=== PATIENT | female | born 1980 | race Caucasian/White ===

== ENCOUNTER → 2021-12-12 | Outpatient (CLI) | payer BC ==
[2021-12-14 19:06] LABS: HPV 16 Negative (Negative); HPV 18 Negative (Negative); HPV OTHER HR TYPES Negative (Negative)
== END | disposition home or self-care (01) ==
LOC: LAB SHORT 15:49 → LAB 15:49
PROVIDERS: Advanced Practice Midwife
DX: Z01.419 Encounter for gynecological examination (general) (routine) without abnormal findings (principal)
CPT/HCPCS: 87624; G0123

== ENCOUNTER → 2022-03-05 | Outpatient (CLI) | payer BC | LOC: LAB SHORT 14:56 → PLD 14:56 | DX: D22.5 Melanocytic nevi of trunk (principal) | CPT/HCPCS: 88305 ==